=== PATIENT | male | born 1980 | race Two or more races ===

== ENCOUNTER 2023-11-17 11:06 | Inpatient (IN) | payer MEDICAID ==
[~2023-11-17] VITALS: Ht 170.2 cm; Wt 82.0 kg
[2023-11-17 11:51] LABS: HEMOGLOBIN 15.2 g/dL (13.5-17.5); MONOCYTES # (AUTO) 0.9 K/uL (0.1-1.0)
[2023-11-17 11:53] LABS: COVID AG,FIA SOURCE NASAL SWAB
[2023-11-17 11:57] LABS: BASOPHILS % (AUTO) 0.6 % (0.0-2.0); EOSINOPHILS % (AUTO) 1.7 % (1.0-6.0); LYMPHOCYTES # (AUTO) 2.4 K/uL (1.0-4.8); LYMPHOCYTES % (AUTO) 24.6 % (22.0-44.0); MEAN CORPUSCULAR HEMOGLOBIN 27.1 pg (26.0-34.0); MEAN CORPUSCULAR VOLUME 82 fL (80-100); MONOCYTES % (AUTO) 9.1 % (2.0-9.0); NEUTROPHILS # (AUTO) 6.3 K/uL (1.8-7.7); PLATELET COUNT (AUTO) 163 K/uL (150-450); RED BLOOD CELL COUNT(AUTO) 5.61 MIL/uL (4.50-5.90); RED CELL DISTRIBUTION WIDTH 17.1 % (11.5-14.5); WHITE BLOOD COUNT (AUTO) 9.8 K/uL (4.5-11.0)
[2023-11-17] MEDS ORDERED: HALOPERIDOL 5 MG TABLET PO PRN (12:00)
[2023-11-17] MEDS ORDERED: ZOLPIDEM TARTRATE 10 MG TABLET PO PRN (12:00)
[2023-11-17] MEDS ORDERED: LORazepam 2 MG TABLET PO PRN (12:00)
[2023-11-17 12:03] LABS: ALCOHOL, BLOOD (SERUM) < 3 mg/dL (0-10); ANION GAP 15 mmol/L (8-16); CARBON DIOXIDE 22 mmol/L (22-29); CHLORIDE 107 mmol/L (98-107); CREATININE 0.89 mg/dL (0.60-1.30); GLOMERULAR FILTR. RATE CALC > 60 mL/min (>60); GLUCOSE,RANDOM 126 mg/dL (70-110); POTASSIUM 3.4 mmol/L (3.5-5.1); SODIUM SERUM 144 mmol/L (136-145); UREA NITROGEN, BLOOD 9 mg/dL (7-18)
[2023-11-17 12:09] LABS: ALANINE AMINOTRANSFERASE 48 U/L (12-78); ALBUMIN 4.4 g/dL (3.4-5.0); ALKALINE PHOSPHATASE 265 U/L (46-116); ASPARTATE AMINOTRANSFERASE 14 U/L (15-37); BILIRUBIN,TOTAL 0.4 mg/dL (0.1-1.0); TOTAL PROTEIN, SERUM 8.4 g/dL (6.4-8.2)
[2023-11-17 12:10] LABS: SARS-COV2 (COVID) ANTIGEN,FIA Negative (Negative)
[2023-11-17] MEDS: DiphenhydrAMINE HCL 25 MG CAPSULE PO ONE (14:36)
[2023-11-17] MEDS: OLANZapine 10 MG TABLET PO ONE (14:36)
[2023-11-17] MEDS: LORazepam 2 MG TABLET PO ONE (14:36)
[2023-11-17] MEDS: POTASSIUM CHLORIDE 20 MEQ ER TABLET PO ONE (19:08)
[2023-11-17] MEDS ORDERED: TRAZ-184 PO (19:25)
[2023-11-17] MEDS ORDERED: QUET200T PO (19:25)
[2023-11-17] MEDS: TraZODone HCL 50 MG TABLET PO ONE (20:55)
[2023-11-17] MEDS: QUEtiapine FUMARATE 100 MG TABLET PO ONE (20:55)
[2023-11-17 23:02] VITALS: BP 137/96; PULSE 84; RESP 18; TEMP 97.2
[2023-11-18 08:00] VITALS: BP 123/68; PULSE 60; RESP 17; TEMP 98.6
[2023-11-18] MEDS ORDERED: ALBUTEROL SULFATE HFA 90 MCG/PUFF 8 GM INHALER IH PRN (14:00)
[2023-11-18] MEDS ORDERED: GuaiFENesin/D-METHORPHAN [SUGAR-FREE] 200-20MG/10 ML SYRUP UDCUP PO PRN (14:00)
[2023-11-18] MEDS ORDERED: MAG HYDROX/ALUMINUM HYD/SIMETH ES 30 ML SUSPENSION UDCUP PO PRN (14:00)
[2023-11-18] MEDS ORDERED: NICOTINE 14 MG/24 HOUR PATCH TD PRN (14:00)
[2023-11-18] MEDS ORDERED: ACETAMINOPHEN 325 MG TABLET PO PRN (14:00)
[2023-11-18] MEDS ORDERED: CloNIDine HCL 0.1 MG TABLET PO PRN (14:00)
[2023-11-18] MEDS ORDERED: IBUPROFEN 400 MG TABLET PO PRN (14:00)
[2023-11-18] MEDS ORDERED: ONDANSETRON HCL 4 MG TABLET PO PRN (14:00)
[2023-11-18] MEDS ORDERED: MAGNESIUM HYDROXIDE SUSPENSION 30 ML UDCUP PO PRN (14:00)
[2023-11-18] MEDS ORDERED: DOCUSATE SODIUM 100 MG CAPSULE PO PRN (14:00)
[2023-11-18] MEDS ORDERED: PETROLATUM,WHITE 28 GM JELLY TP PRN (14:00)
[2023-11-18] MEDS ORDERED: LOPERAMIDE HCL 2 MG CAPSULE PO PRN (14:00)
[2023-11-18] MEDS: QUEtiapine FUMARATE 100 MG TABLET PO SCH (20:40)
[2023-11-18 20:56] VITALS: RESP 18; TEMP 97.9
[2023-11-19 08:27] LABS: HEMOGLOBIN A1C 5.7 % (3.8-5.6)
[2023-11-19 09:11] VITALS: BP 118/86; PULSE 67; RESP 17; TEMP 98.7
[2023-11-19 09:16] LABS: CHOL/HDL RATIO 4.8 (4.2-7.3)
[2023-11-19 20:38] VITALS: BP 128/89; PULSE 96; RESP 18; TEMP 98.1
[2023-11-20 08:24] VITALS: BP 129/86; PULSE 88; RESP 18; TEMP 98.5
[2023-11-20] MEDS ORDERED: QUET100T34 PO (09:55)
== END 2023-11-20 13:57 | disposition home or self-care (01) | DRG 750 ==
LOC: EMS 11:06 → 3EC 11-18 00:04
PROVIDERS: ADMIT Psychiatry & Neurology Child & Adolescent Psychiatry; ATTEND Psychiatry & Neurology Child & Adolescent Psychiatry
DX: F20.9 Schizophrenia, unspecified (principal); E87.6 Hypokalemia; Z20.822 Contact with and (suspected) exposure to COVID-19; G47.00 Insomnia, unspecified; Z87.820 Personal history of traumatic brain injury
CPT/HCPCS: 80053; 80061; 83036; 84443; 85025; 99285; G0480